=== PATIENT | male | born 1970 | race Caucasian/White ===

== ENCOUNTER 2020-02-05 13:10 | Outpatient (CLI) | payer OTHER, SELFPAY ==
--- NOTE | 2020-02-05 | ECG_ITS ---
Measurements Intervals [place] Rate: 82 P: 23 VA: 209 QRS: -3 QRSD: 109 T: 27 QT: 386 QTc: 453 Interpretive Statements SINUS RHYTHM DELAYED PRECORDIAL R/S TRANSITION INFERIOR INFARCT, AGE INDETERMINATE BASELINE ARTIFACT- III, AVF ABNORMAL ECG Electronically Signed On 02-05-2020 13:40:22 CDT by Thierno Robles D.O.
== END 2020-02-05 13:11 | disposition home or self-care (01) ==
PROVIDERS: PCP Family Medicine; Visit Provider Family Medicine
DX: Z01.818 Encounter for other preprocedural examination (principal); I44.0 Atrioventricular block, first degree
CPT/HCPCS: 93005